=== PATIENT | male | born 2000 | race Caucasian/White ===

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

== ENCOUNTER 2018-11-20 20:38 | Emergency (ER) | payer MEDICAID, OTHER ==
[~2018-11-20] VITALS: Ht 162.6 cm; Wt 97.3 kg
[~2018-11-20 20:38] MED LIST: CEPH-443 PO; CLIN300C10 PO; IBUP-1542 PO; IBUP800T48 PO; SULF1TAB31 PO
[2018-11-20 20:44] VITALS: BP 123/74; PULSE 87; RESP 20; Ht 162.6 cm; Wt 97.3 kg
[2018-11-20] MEDS ORDERED: DIPHTH/TET/ACEL PERTUSS (ADULT) 0.5 ML VIAL IM* ONE (21:30)
[2018-11-20] MEDS ORDERED: BACITRACIN/POLYMYXIN 28.35 GM OINT TOP ONE ×2 (21:30→22:30)
[2018-11-20] MEDS ORDERED: CLINDAMYCIN 300 MG INJ IM ONE (22:00)
[2018-11-20] MEDS ORDERED: HYDROCODONE/APAP (10/325) TAB PO ONE (22:00)
== END 2018-11-20 22:30 | disposition home or self-care (01) ==
LOC: FTE 20:38
DX: S91.301A Unspecified open wound, right foot, initial encounter (principal); F17.210 Nicotine dependence, cigarettes, uncomplicated; L08.9 Local infection of the skin and subcutaneous tissue, unspecified; X58.XXXA Exposure to other specified factors, initial encounter; Y92.9 Unspecified place or not applicable; Z23 Encounter for immunization
CPT/HCPCS: 82962; 87070; 90471; 90715; 96372